=== PATIENT | male | born 1935 | race Two or more races ===

== ENCOUNTER 2018-11-06 05:43 | Day surgery (SDC) | payer OTHER ==
[~2018-11-06 05:43] MED LIST: ALPRAZOLAM ER0.5 MG; ALPRAZOLAM0.5 M1; ANUSOL-HC30 G2 RECTAL; ASA81 MG; ELIQUIS2.5 MG; EXFORGE 5-320 M1 TAB; FEOSOL325 MG; FERROUS SULFAT325 MG; HYDRALAZINE HC100 MG; HYTRIN2 MG; KEFLEX500 MG PO; KETO10TA2 PO; LACTULOSE10 GM/151 PO; LIPITOR20 MG; LISINOPRIL10 MG; MEDROLPACK PO; METAMUCIL0.4 GM; NEURONTIN300 MG; NIFE60TA3; PLAVIX75 MG; PNEU16DI2; PROTONIX40 MG; TAMS0.4C; TRAZODONE HCL50 MG; VASOTEC20 MG; ZETIA10 MG; ZOCOR40 MG
[2018-11-06] MEDS ORDERED: ULTRACET PO (09:08)
[2018-11-06] MEDS ORDERED: POLY119PG PO (09:08)
[2018-11-06] MEDS ORDERED: COLACE100 MG PO (09:08)
== END 2018-11-06 12:33 | disposition home or self-care (01) ==
LOC: CIR.AMB 05:43 → EDBD 11:15 → EDSEX 11:15 → CIR.AMB 11:15
DX: K60.1 Chronic anal fissure (principal); K62.4 Stenosis of anus and rectum

== ENCOUNTER 2018-11-06 18:08 | Emergency (ER) | payer OTHER ==
[~2018-11-06] VITALS: Ht 167.6 cm; Wt 81.6 kg
[~2018-11-06 18:08] MED LIST changes: +COLACE100 MG PO; +POLY119PG PO; +ULTRACET PO
== END 2018-11-06 21:57 | disposition home or self-care (01) ==
LOC: ER 18:08
DX: N99.89 Other postprocedural complications and disorders of genitourinary system (principal); R33.8 Other retention of urine

== ENCOUNTER 2019-07-02 13:21 | Emergency (ER) | payer OTHER ==
[~2019-07-02] VITALS: Ht 167.6 cm; Wt 90.7 kg
[2019-07-02] MEDS ORDERED: CLARITIN10 M1 PO (15:18)
[2019-07-02] MEDS ORDERED: ZITHROMAX500 MG PO (15:18)
[2019-07-02] MEDS ORDERED: TUSNEL LIQUID178 ML PO (15:18)
== END 2019-07-02 16:10 | disposition home or self-care (01) ==
LOC: ER 13:21
DX: J06.9 Acute upper respiratory infection, unspecified (principal)